=== PATIENT | female | born 1975 | race African-American/Black ===

== ENCOUNTER 2022-04-24 09:32 | Emergency (ER) | payer OTHER | END 2022-04-24 10:55 | disposition home or self-care (01) | LOC: CSHERS 09:32 | DX: M25.562 Pain in left knee (principal) ==

== ENCOUNTER 2022-06-26 15:01 | Outpatient (CLI) | payer OTHER | END 2022-06-26 15:02 | disposition home or self-care (01) | LOC: CSHLAB 15:01 | PROVIDERS: ATTEND Obstetrics & Gynecology | DX: Z01.818 Encounter for other preprocedural examination (principal) | CPT/HCPCS: 84703; 85027; 86850; 86900; 86901; 93005; 93010 ==

== ENCOUNTER 2022-06-28 10:49 | Day surgery (SDC) | payer OTHER ==
[2022-06-26 15:50] VITALS: BMI 29.3
[2022-06-26 15:50] LABS: Hemoglobin 12.4 g/dL (12.0-15.5); Mean Corpuscular HGB CONC 31.5 g/dL (32.0-36.0); Mean Corpuscular Hemoglobin 26.4 pg (27.0-33.0); Mean Corpuscular Volume 83.8 fl (81.6-98.3); Mean Platelet Volume 9.2 fl (7.4-10.4); Platelet Count 392 10x3/uL (150-450); RBC Distribution Width 14.8 % (11.5-14.5); White Blood Cell (WBC) Count 9.3 10x3/uL (3.5-10.5)
[2022-06-26 15:58] LABS: BHCG - Serum Negative (NEGATIVE); Pregs Control Background? CLEAR/WHITE (CLR/WHITE); Pregs Control Bar Appear? YES (CONTROL BAR)
[2022-06-28] MEDS ORDERED: Ondansetron PF 4 MG/2 ML Vial ONE (12:51)
[2022-06-28] MEDS ORDERED: Fentanyl 100 MCG/2 ML VIAL ONE (12:51)
[2022-06-28] MEDS ORDERED: Lidocaine 1% PF 5 ML VIAL ONE (12:51)
[2022-06-28] MEDS ORDERED: Ketorolac Tromethamine 30 MG/ML VIAL ONE (12:51)
[2022-06-28] MEDS ORDERED: Dexamethasone 20 MG/5 ML VIAL ONE (12:51)
[2022-06-28] MEDS ORDERED: PROPOFOL 20 ML ONE (12:51)
[2022-06-28] MEDS ORDERED: Midazolam HCl 2 mg/2 ml Vial ONE (12:51)
[2022-06-28] MEDS ORDERED: CEFAZOLIN 2 GM VIAL ONE (12:56)
[2022-06-28] MEDS ORDERED: Glycopyrrolate 0.2 MG/ML 5 ML SYRINGE ONE (13:03)
== END 2022-06-28 15:15 | disposition home or self-care (01) ==
LOC: CSHSDC 10:49
PROVIDERS: ATTEND Obstetrics & Gynecology
PROC: 0UB98ZZ Excision of Uterus, Via Natural or Artificial Opening Endoscopic (ICD-10-PCS; principal; 2022-06-28)
DX: N84.0 Polyp of corpus uteri (principal); N92.0 Excessive and frequent menstruation with regular cycle; N94.6 Dysmenorrhea, unspecified; Z98.51 Tubal ligation status; I10 Essential (primary) hypertension; Z79.899 Other long term (current) drug therapy
CPT/HCPCS: 84703; 85027; 86850; 86900; 86901; 88305; J1100; J1885; J2250; J2405; J2704; J3010